=== PATIENT | female | born 1960 | race Caucasian/White ===

== ENCOUNTER 2017-10-07 07:31 | Emergency (ER) | payer BC ==
[~2017-10-07] VITALS: Ht 162.6 cm; Wt 88.5 kg
[2017-10-07] MEDS ORDERED: VENTOLIN HFA 1818 GM INH (07:49)
[2017-10-07] MEDS ORDERED: [UNRECOGNIZED DRUG - REMARK] (07:51)
[2017-10-07 08:03] LABS: URINE BILIRUBIN NEGATIVE (Negative); URINE BLOOD TRACE (Negative); URINE CLARITY CLEAR; URINE COLOR YELLOW; URINE GLUCOSE-RANDOM NEGATIVE (Negative); URINE KETONES NEGATIVE (Negative); URINE NITRITE-REFLEX NEGATIVE (Negative); URINE PROTEIN NEGATIVE (Negative); URINE SPECIFIC GRAVITY 1.025 (1.005-1.030); URINE UROBILINOGEN 0.2 E.U./dl (0.2-1.0)
[2017-10-07 08:04] LABS: URINE LEUKOCYTES-REFLEX 2+ (Negative)
[2017-10-07 08:12] LABS: CASTS None Seen /LPF (None Seen); CRYSTALS None Seen /LPF (None Seen); MUCUS None Seen strn/LPF (None Seen); SQUAMOUS 4-10 Moderate /LPF (0-3); URINE WBC-REFLEX >25 Many /HPF (0-5)
[2017-10-07 08:19] LABS: ABSOLUTE BASOPHILS 0.1 thou/uL (0.0-0.2); ABSOLUTE EOSINOPHILS 0.2 thou/uL (0.0-0.7); ABSOLUTE LYMPHOCYTES 2.4 thou/uL (0.8-5.3); ABSOLUTE MONOCYTES 0.6 thou/uL (0.0-1.2); ABSOLUTE NEUTROPHILS 4.8 thou/uL (1.6-8.1); BASOPHILS 0.8 %; EOSINOPHILS 2.4 %; HEMATOCRIT 34.9 % (37.0-47.0); LYMPHOCYTES 29.5 %; MCH 29.7 pg (26.0-34.0); MCHC 34.2 g/dL (28.0-37.0); MCV 86.7 fL (80.0-100.0); MONOCYTES 7.3 %; MPV 6.8 fl. (7.2-11.1); NUCLEATED RBCS 0 /100WBC; PLATELET COUNT* 215 thou/uL (150-400); RBC 4.03 mil/uL (4.20-5.00); RDW-CV 13.2 % (10.5-14.5)
[2017-10-07 08:29] LABS: ANION GAP 8 mmol/L (7-16); BUN 21 mg/dL (7-18); CALCIUM 8.6 mg/dL (8.5-10.1); CHLORIDE 109 mmol/L (98-107); CO2 26 mmol/L (21-32); CREATININE 0.8 mg/dL (0.6-1.3); GLUCOSE 102 mg/dL (70-99); POTASSIUM 3.1 mmol/L (3.5-5.1); SODIUM 143 mmol/L (136-145)
[2017-10-07 08:35] LABS: ALBUMIN 3.4 g/dL (3.4-5.0); ALKALINE PHOSPHATASE 79 U/L (46-116); LIPASE 89 U/L (73-393); SGOT 26 U/L (15-37); SGPT 40 U/L (30-65); TOTAL BILIRUBIN 0.5 mg/dL (<0.1-1.0); TOTAL PROTEIN 6.5 g/dL (6.4-8.2); TROPONIN-I LEVEL <0.06 ng/mL (<0.06)
[2017-10-07] MEDS ORDERED: KEFLEX500 M1 PO (10:42)
[2017-10-07 10:51] VITALS: BP 138/91
== END 2017-10-07 10:52 | disposition home or self-care (01) ==
LOC: M.ERS 07:31
PROVIDERS: Emergency Medicine
DX: N39.0 Urinary tract infection, site not specified (principal); I10 Essential (primary) hypertension; E11.9 Type 2 diabetes mellitus without complications; J45.909 Unspecified asthma, uncomplicated; Z88.1 Allergy status to other antibiotic agents; Z88.8 Allergy status to other drugs, medicaments and biological substances

== ENCOUNTER 2017-11-21 15:38 | Emergency (ER) | payer BC ==
[~2017-11-21] VITALS: Ht 165.1 cm; Wt 95.3 kg
[~2017-11-21 15:38] MED LIST: KEFLEX500 M1 PO; VENTOLIN HFA 1818 GM INH; [UNRECOGNIZED DRUG - REMARK]
[2017-11-21] MEDS ORDERED: DOXYCYCLINE 10100 MG PO (15:48)
[2017-11-21 16:26] LABS: ABSOLUTE EOSINOPHILS 0.2 thou/uL (0.0-0.7); ABSOLUTE LYMPHOCYTES 1.1 thou/uL (0.8-5.3); ABSOLUTE MONOCYTES 0.5 thou/uL (0.0-1.2); ABSOLUTE NEUTROPHILS 3.7 thou/uL (1.6-8.1); BASOPHILS 0.2 %; EOSINOPHILS 2.9 %; HEMATOCRIT 38.2 % (37.0-47.0); LYMPHOCYTES 20.3 %; MCH 29.7 pg (26.0-34.0); MCV 87.4 fL (80.0-100.0); MONOCYTES 9.6 %; MPV 6.5 fl. (7.2-11.1); NUCLEATED RBCS 0 /100WBC; PLATELET COUNT* 198 thou/uL (150-400); RBC 4.37 mil/uL (4.20-5.00); RDW-CV 13.2 % (10.5-14.5); WBC 5.5 thou/uL (4.0-11.0)
[2017-11-21 16:35] LABS: ANION GAP 7 mmol/L (7-16); BUN 13 mg/dL (7-18); CALCIUM 8.7 mg/dL (8.5-10.1); CHLORIDE 104 mmol/L (98-107); CO2 29 mmol/L (21-32); CREATININE 0.9 mg/dL (0.6-1.3); GLUCOSE 106 mg/dL (70-99); POTASSIUM 3.3 mmol/L (3.5-5.1); SODIUM 140 mmol/L (136-145)
[2017-11-21 16:44] LABS: ALBUMIN 3.8 g/dL (3.4-5.0); ALKALINE PHOSPHATASE 84 U/L (46-116); LIPASE 69 U/L (73-393); SGOT 32 U/L (15-37); SGPT 45 U/L (30-65); TOTAL BILIRUBIN 0.6 mg/dL (<0.1-1.0); TOTAL PROTEIN 7.7 g/dL (6.4-8.2); TROPONIN-I LEVEL <0.06 ng/mL (<0.06)
[2017-11-21] MEDS ORDERED: PROAIR HFA8.5 GM INH (17:01)
[2017-11-21] MEDS ORDERED: PREDNISONE 20 M20 MG PO (17:01)
[2017-11-21] MEDS ORDERED: PEPCID20 MG PO (17:04)
[2017-11-21 17:15] VITALS: BP 157/93
[2017-11-21] MEDS ORDERED: AEROECLIPSE II1 EACH MISCELL (17:18)
[2017-11-21] MEDS ORDERED: ALBUTEROL2.5 MG/31 INH (17:18)
--- NOTE | 2017-11-22 15:14 | EKG ---
[place] [address] ELECTROCARDIOGRAM REPORT Name: SKYLAR OLSEN Room: [facility] ([place], [place])#: [id number] Admission: 11/21/17 Attend Phys: Discharge: 11/21/17 Date of : 62 Report #: [id number] THIS REPORT FOR: //name// [facility] ED Test Date: 2017-11-21 Test Time: 15:47:35 Pat Name: SKYLAR OLSEN Department: Room: Gender: F Tree Topper: Marco Antonio CAREY : 1960 Requested By: Niurka Regan Order Number: [id number] Steve MD: Kg Licona Measurements Intervals [place] Rate: 107 P: 64 IN: 182 QRS: -9 QRSD: 88 T: 48 QT: 345 QTc: 461 Interpretive Statements Sinus tachycardia Probable left atrial enlargement Low voltage, precordial leads Probable anteroseptal infarct, old No previous ECG available for comparison Electronically Signed On 11-22-2017 15:14:29 CDT by Kg Licona [email or web address] <ELECTRONICALLY SIGNED> By: Kg Licona MD, [facility] 11/22/17 1514 1547 1547 Kg Licona MD, [facility] /EPI
== END 2017-11-21 17:30 | disposition home or self-care (01) ==
LOC: M.ERS 15:38
PROVIDERS: Physician Assistant
DX: J18.9 Pneumonia, unspecified organism (principal); I10 Essential (primary) hypertension; E11.9 Type 2 diabetes mellitus without complications; J45.909 Unspecified asthma, uncomplicated; Z88.1 Allergy status to other antibiotic agents; Z88.8 Allergy status to other drugs, medicaments and biological substances

== ENCOUNTER 2018-01-09 01:36 | Emergency (ER) | payer BC ==
[~2018-01-09] VITALS: Ht 165.1 cm; Wt 95.3 kg
[~2018-01-09 01:36] MED LIST changes: +AEROECLIPSE II1 EACH MISCELL; +ALBUTEROL2.5 MG/31 INH; +DOXYCYCLINE 10100 MG PO; +PEPCID20 MG PO; +PREDNISONE 20 M20 MG PO; +PROAIR HFA8.5 GM INH
[2018-01-09] MEDS ORDERED: ADVAIR HFA 230M12 GM (01:52)
[2018-01-09] MEDS ORDERED: SINGULAIR 10 MG10 M1 (01:52)
[2018-01-09] MEDS ORDERED: PEPCID20 MG (01:52)
[2018-01-09] MEDS ORDERED: MEDROLDOSEPACK PO (02:22)
[2018-01-09] MEDS ORDERED: CUTIVATE30 GM TOP (02:22)
[2018-01-09 02:44] VITALS: BP 148/88
== END 2018-01-09 02:46 | disposition home or self-care (01) ==
LOC: M.ERS 01:36
DX: L25.9 Unspecified contact dermatitis, unspecified cause (principal); I10 Essential (primary) hypertension; E11.9 Type 2 diabetes mellitus without complications; J45.909 Unspecified asthma, uncomplicated; Z88.8 Allergy status to other drugs, medicaments and biological substances; Z88.1 Allergy status to other antibiotic agents

== ENCOUNTER → 2018-02-02 | Outpatient (CLI) | payer BC ==
[~2018-02-02] MED LIST changes: +ADVAIR HFA 230M12 GM; +CUTIVATE30 GM TOP; +MEDROLDOSEPACK PO; +PEPCID20 MG; +SINGULAIR 10 MG10 M1
[2018-02-02 11:04] LABS: HEMATOCRIT 38.1 % (37.0-47.0); MCH 30.1 pg (26.0-34.0); MCV 88.3 fL (80.0-100.0); MPV 6.4 fl. (7.2-11.1); RBC 4.31 mil/uL (4.20-5.00); RDW-CV 13.2 % (10.5-14.5); WBC 6.1 thou/uL (4.0-11.0)
[2018-02-02 11:30] LABS: ALBUMIN 3.3 g/dL (3.4-5.0); CREATININE 0.9 mg/dL (0.6-1.3); POTASSIUM 3.4 mmol/L (3.5-5.1); TOTAL BILIRUBIN 0.6 mg/dL (<0.1-1.0); TOTAL PROTEIN 6.8 g/dL (6.4-8.2)
[2018-02-03 02:07] LABS: GLYCOHEMOGLOBIN (HGB A1C) 6.1 % (4.8-5.6)
--- NOTE | 2018-02-09 16:07 | PATH ---
[address] [address] PATHOLOGY RPT PROCEDURE Name: SKYLAR OLSEN Room: [facility] Angela#: [id number] Admission: 02/02/18 Date of : 62 Discharge: Report #: [id number] Path Case #: [id number] [facility] Accession Number: [id number] . 01 Material submitted: . LEFT LEG WOUND . 01 Clinical history: . None provided . 02 Diagnosis: Left leg wound/biopsy: - Benign skin with nonspecific ulceration, special stains negative for fungal elements. [facility]/02/07/2018 . 02 Comment: Special stain: PAS fungus. . ([place]:carito; 02/06/18) . 02 Electronically signed: . Jenaro Aldrich MD, Pathologist NPI- [id number] . 01 Gross description: . The specimen is received in formalin, labeled "Skylar Ewbank, left leg biopsy". Received is an irregular shave biopsy of pale flynn, glistening skin measuring 0.8 x 0.5 x 0.1 cm in greatest dimensions. The surgical margin is inked. The specimen is bisected and entirely submitted in cassette A1. (CAA; 02/03/2018) QAC/QAC . 02 Pathologist provided ICD-10: L98.499 . 02 CPT . 328267, 964330 Performed at: 01 [facility] [address], [place] [address] MD Jonathon Elias MD Phone: [phone] Performed at: [address] [address] [address], [place], [place] [id number] MD Jenaro Aldrich MD Phone: [phone]
== END ==
LOC: M.WC 09:00 → M.LAB 09:01
PROVIDERS: Family Medicine
DX: L03.115 Cellulitis of right lower limb (principal); L03.116 Cellulitis of left lower limb; I10 Essential (primary) hypertension; K21.9 Gastro-esophageal reflux disease without esophagitis; J45.20 Mild intermittent asthma, uncomplicated; L84 Corns and callosities; F32.9 Major depressive disorder, single episode, unspecified; F41.9 Anxiety disorder, unspecified; R21 Rash and other nonspecific skin eruption; G47.30 Sleep apnea, unspecified; E11.36 Type 2 diabetes mellitus with diabetic cataract; J42 Unspecified chronic bronchitis

== ENCOUNTER → 2018-02-09 | Outpatient (CLI) | payer BC | LOC: M.WC 04:50 | DX: L03.115 Cellulitis of right lower limb (principal); L03.116 Cellulitis of left lower limb; E11.36 Type 2 diabetes mellitus with diabetic cataract; I10 Essential (primary) hypertension; K21.9 Gastro-esophageal reflux disease without esophagitis; R21 Rash and other nonspecific skin eruption; G47.30 Sleep apnea, unspecified; J45.20 Mild intermittent asthma, uncomplicated; J42 Unspecified chronic bronchitis ==

== ENCOUNTER → 2018-02-23 | Outpatient (CLI) | payer BC | LOC: M.WC 04:47 | DX: S81.802D Unspecified open wound, left lower leg, subsequent encounter (principal); S81.801D Unspecified open wound, right lower leg, subsequent encounter; R21 Rash and other nonspecific skin eruption; E11.36 Type 2 diabetes mellitus with diabetic cataract; I10 Essential (primary) hypertension; L84 Corns and callosities; G47.30 Sleep apnea, unspecified; K21.9 Gastro-esophageal reflux disease without esophagitis; J45.909 Unspecified asthma, uncomplicated; J42 Unspecified chronic bronchitis; F41.9 Anxiety disorder, unspecified; F32.9 Major depressive disorder, single episode, unspecified; X58.XXXD Exposure to other specified factors, subsequent encounter ==

== ENCOUNTER 2018-08-09 16:18 | Emergency (ER) | payer OTHER ==
[~2018-08-09] VITALS: Ht 165.1 cm; Wt 97.1 kg
[2018-08-09] MEDS ORDERED: SYMBICORT80 MCG/4.1 INH (16:27)
[2018-08-09] MEDS ORDERED: MEDROLDOSEPACK PO (16:47)
[2018-08-09 17:35] VITALS: BP 139/87
== END 2018-08-09 17:38 | disposition home or self-care (01) ==
LOC: M.ERS 16:18
DX: R22.1 Localized swelling, mass and lump, neck (principal); T78.40XA Allergy, unspecified, initial encounter; I10 Essential (primary) hypertension; E11.9 Type 2 diabetes mellitus without complications; J45.909 Unspecified asthma, uncomplicated; K58.9 Irritable bowel syndrome, unspecified; Z88.1 Allergy status to other antibiotic agents; Z88.8 Allergy status to other drugs, medicaments and biological substances; X58.XXXA Exposure to other specified factors, initial encounter

== ENCOUNTER 2018-08-16 22:27 | Emergency (ER) | payer OTHER ==
[~2018-08-16] VITALS: Ht 165.1 cm; Wt 98.1 kg
[~2018-08-16 22:27] MED LIST changes: +SYMBICORT80 MCG/4.1 INH
[2018-08-16] MEDS ORDERED: MEDROLDOSEPACK PO (23:38)
[2018-08-16] MEDS ORDERED: VISTARIL 25 MG25 M1 PO (23:39)
[2018-08-16 23:50] VITALS: BP 156/81
== END 2018-08-16 23:50 | disposition home or self-care (01) ==
LOC: M.ERS 22:27
DX: R06.02 Shortness of breath (principal); T78.49XA Other allergy, initial encounter; I10 Essential (primary) hypertension; E11.9 Type 2 diabetes mellitus without complications; J45.909 Unspecified asthma, uncomplicated; K58.9 Irritable bowel syndrome, unspecified; Z88.1 Allergy status to other antibiotic agents; Z88.8 Allergy status to other drugs, medicaments and biological substances; X58.XXXA Exposure to other specified factors, initial encounter

== ENCOUNTER 2018-11-10 09:23 | Emergency (ER) | payer OTHER ==
[~2018-11-10] VITALS: Ht 162.6 cm; Wt 97.1 kg
[~2018-11-10 09:23] MED LIST changes: +VISTARIL 25 MG25 M1 PO
[2018-11-10 10:05] LABS: HEMOGLOBIN 13.6 gm/dL (12.0-15.0); MCH 29.9 pg (26.0-34.0); MCHC 33.9 g/dL (28.0-37.0); MCV 88.1 fL (80.0-100.0); RBC 4.54 mil/uL (4.20-5.00); RDW-CV 13.3 % (10.5-14.5); WBC 7.2 thou/uL (4.0-11.0)
[2018-11-10 10:14] LABS: CALCIUM 9.1 mg/dL (8.5-10.1); CREATININE 0.9 mg/dL (0.6-1.3); POTASSIUM 3.5 mmol/L (3.5-5.1)
[2018-11-10 10:36] LABS: URINE BILIRUBIN NEGATIVE (Negative); URINE BLOOD NEGATIVE (Negative); URINE CLARITY CLEAR; URINE COLOR YELLOW; URINE GLUCOSE-RANDOM 3+ (Negative); URINE KETONES TRACE (Negative); URINE LEUKOCYTES-REFLEX NEGATIVE (Negative); URINE NITRITE-REFLEX NEGATIVE (Negative); URINE PROTEIN NEGATIVE (Negative); URINE SPECIFIC GRAVITY >= 1.030 (1.005-1.030); URINE UROBILINOGEN 0.2 E.U./dl (0.2-1.0)
[2018-11-10] MEDS ORDERED: METFORMIN HCL500 MG PO (11:06)
[2018-11-10 11:27] VITALS: BP 152/83
== END 2018-11-10 11:27 | disposition home or self-care (01) ==
LOC: M.ERS 09:23
PROVIDERS: Emergency Medicine Emergency Medical Services
DX: E11.9 Type 2 diabetes mellitus without complications (principal); I10 Essential (primary) hypertension; J45.909 Unspecified asthma, uncomplicated; K58.9 Irritable bowel syndrome, unspecified; Z88.1 Allergy status to other antibiotic agents; Z90.13 Acquired absence of bilateral breasts and nipples; Z88.8 Allergy status to other drugs, medicaments and biological substances

== ENCOUNTER 2019-10-18 22:27 | Emergency (ER) | payer OTHER ==
[~2019-10-18] VITALS: Ht 162.6 cm; Wt 88.5 kg
[~2019-10-18 22:27] MED LIST changes: +METFORMIN HCL500 MG PO
[2019-10-18] MEDS ORDERED: OMEPRAZOLE40 MG PO (22:42)
[2019-10-18] MEDS ORDERED: LIPITOR 20 MG T20 M1 PO (22:42)
[2019-10-18] MEDS ORDERED: COZAAR 25 MG TA25 M1 PO (22:42)
[2019-10-18] MEDS ORDERED: ASA81BEC PO (22:42)
[2019-10-18 23:05] LABS: INFLUENZA A ANTIGEN Negative (Negative); INFLUENZA B ANTIGEN Negative (Negative)
[2019-10-18 23:13] LABS: ABSOLUTE EOSINOPHILS 0.2 thou/uL (0.0-0.7); ABSOLUTE LYMPHOCYTES 3.4 thou/uL (0.8-5.3); ABSOLUTE MONOCYTES 0.7 thou/uL (0.0-1.2); ABSOLUTE NEUTROPHILS 5.7 thou/uL (1.6-8.1); BASOPHILS 0.3 %; EOSINOPHILS 1.8 %; HEMATOCRIT 38.1 % (37.0-47.0); HEMOGLOBIN 13.1 gm/dL (12.0-15.0); LYMPHOCYTES 33.7 %; MCH 31.2 pg (26.0-34.0); MCHC 34.4 g/dL (28.0-37.0); MCV 90.5 fL (80.0-100.0); MONOCYTES 6.9 %; MPV 6.8 fl. (7.2-11.1); NUCLEATED RBCS 0 /100WBC; PLATELET COUNT* 255 thou/uL (150-400); POLYS 57.3 %; RBC 4.22 mil/uL (4.20-5.00); RDW-CV 12.9 % (10.5-14.5)
[2019-10-18 23:18] LABS: CALCIUM 8.5 mg/dL (8.5-10.1); POTASSIUM 3.3 mmol/L (3.5-5.1)
[2019-10-18 23:23] LABS: ALBUMIN 3.7 g/dL (3.4-5.0); TOTAL BILIRUBIN 0.6 mg/dL (<0.1-1.0); TOTAL PROTEIN 7.2 g/dL (6.4-8.2)
[2019-10-19] MEDS ORDERED: ZPAK PO (02:07)
[2019-10-19 02:20] VITALS: BP 139/87
--- NOTE | 2019-10-19 10:56 | EKG ---
[place] [address] ELECTROCARDIOGRAM REPORT Name: SKYLAR OLSEN [facility] [id number] Admission: 10/18/19 Attend Phys: Discharge: 10/19/19 Date of : 62 Date of Service: 10/18/192251 Report #: [id number] THIS REPORT FOR: //name// [facility] ED Test Date: 2019-10-18 Test Time: 22:52:26 Pat Name: SKYLAR OLSEN Department: Room: Gender: Imaging Technician: : 1960 Requested By: Tigist Antony Order Number: [id number] MD: Kg Licona Measurements Intervals [place] Rate: 74 P: 11 DC: 162 QRS: -9 QRSD: 95 T: -19 QT: 414 QTc: 460 Interpretive Statements Sinus rhythm old anterior infarction Inferior infarct, age indeterminate Compared to ECG 11/21/2017 15:47:35 Sinus tachycardia no longer present Myocardial infarct finding still present Electronically Signed On 10-19-2019 10:54:23 CDT by Kg Licona [email or web address] <ELECTRONICALLY SIGNED> By: Kg Licona MD, FACC 10/19/19 1054 2252 2252 Kg Licona MD, [facility] /EPI
== END 2019-10-19 02:20 | disposition home or self-care (01) ==
LOC: M.ERS 22:27
PROVIDERS: Emergency Medicine
DX: J18.9 Pneumonia, unspecified organism (principal); I10 Essential (primary) hypertension; E11.9 Type 2 diabetes mellitus without complications; K58.9 Irritable bowel syndrome, unspecified; J45.909 Unspecified asthma, uncomplicated; Z88.1 Allergy status to other antibiotic agents; Z88.8 Allergy status to other drugs, medicaments and biological substances

== ENCOUNTER 2020-02-28 09:55 | Inpatient (IN) | payer BC ==
[~2020-02-28] VITALS: Ht 162.6 cm; Wt 92.2 kg
--- NOTE | ~2020-02-28 | CON ---
[address] [address] CONSULTATION Name: SKYLAR OLSEN Room: [address] IN .R.#: [id number] Admission: 02/28/20 Attend Phys: Savage Pizano MD Discharge: Date of : 62 Report #: [id number] THIS REPORT FOR: //name// cc: Marianna Steinberg MD, Michelle MD ~ THIS REPORT FOR: //name// CC: Savage Stauffer DATE OF SERVICE: 02/29/2020 REQUESTING PHYSICIAN: Savage Pizano MD INDICATION FOR CONSULTATION: COVID-19. HISTORY OF PRESENT ILLNESS: A 59-year-old female who is a lifetime nonsmoker. She does have a history of bronchial asthma as well as diabetes. The patient has a clinical history consistent with obstructive sleep apnea. She has previously considered a sleep study; however, has not had one performed. The patient was now diagnosed with COVID-19 around 11-12 days ago. She has been treated with 2 Medrol Dosepaks as an outpatient. She has been checking her O2 saturation at home and has seen a drop to up to 80% on room air. The patient also has had a high-grade fever with chills up to 39.1 degrees Celsius. She has had worsening shortness of breath despite taking steroids as an outpatient. She also had a cough, occasional scanty yellow or white sputum, mostly dry. No chest pain, is not having a nasal discharge, minor sore throat, no swelling of lower extremities, no calf pain. Has had disturbed sleep, daytime sleepiness, sleep complaints are at baseline. Did have some joint pains. The patient answered to the negative for 12 questions for review of systems except as mentioned above. The patient continues to have ongoing shortness of breath and coughing. She was having difficulty speaking in full sentences at the time of my evaluation and had repeated coughing. REVIEW OF SYSTEMS: The patient's review of systems for 12 points is negative except as above. PAST MEDICAL HISTORY: Bronchial asthma; diabetes; clinical history consistent with obstructive sleep apnea, not previously diagnosed; bilateral breast reduction and liposuction; right thumb tendon repair; gallbladder surgery; hypertension; irritable bowel syndrome; facial biopsy. SOCIAL HISTORY: Lifetime nonsmoker. No known history of heavy alcohol use or illegal drug use. CURRENT MEDICATIONS: List [place] [address] CONSULTATION Name: SKYLAR OLSEN Room: [address]#: [id number] Admission: 02/28/20 Attend Phys: Savage Pizano MD Discharge: Date of : 62 Report #: [id number] HOME MEDICATIONS: List in [place] reviewed, also as discussed above. ALLERGIES: THE PATIENT SAYS SHE HAS HAD A RASH WITH AUGMENTIN; HOWEVER, SHE TOLERATES CEPHALOSPORINS WITHOUT PROBLEMS. GLUTEN IS ALSO LISTED AN ALLERGY. SHE HAS HAD KODY INHIBITOR RELATED COUGH WITH LISINOPRIL. PHYSICAL EXAMINATION: GENERAL: The patient is alert, awake and oriented, appears to be short of breath at rest, was repeatedly coughing at the time of my examination. VITAL SIGNS: Pulse of 89, blood pressure 127/74. She is saturating in the mid 90s on 3 liters oxygen via nasal cannula. I asked the patient's RN to check an O2 saturation on room air. The patient had an O2 saturation reported as low as 89% on room air at rest and on minor ambulation to commode dropping to 85%. Therefore, the patient remains on supplemental oxygen. Her respiratory rate is 19. She had a high-grade fever up to 39.1 on initial presentation, she is 37.0 now. HEENT: Head is normocephalic and atraumatic. She has a narrow airway. NECK: Does not show raised JVP, asymmetry, mass, or lymph nodes. CHEST: Symmetrical expansion on inspection and palpation. On auscultation, breath sounds are bilaterally equal, decreased with expirations prolonged. I do not hear any added sounds. HEART: Regular. There is no murmur. ABDOMEN: Soft and nontender. EXTREMITIES: Lower extremities show no edema, no calf tenderness. SKIN: Dry and intact. NEUROLOGICAL: Moves all extremities bilaterally equally and spontaneously with no focal deficit identified. LABORATORY DATA: The patient's chest x-ray is reviewed. There are bilateral interstitial infiltrates consistent with COVID-19. There are also focal opacities at the left lung base, which raise the possibility of secondary bacterial pneumonia. The patient's COVID-19 antigen is positive. CBC and chemistries from yesterday in [facility] reviewed. I have ordered repeat labs which are pending. Arterial blood gas in [facility] reviewed. ASSESSMENT/PLAN: 1. COVID-19. The patient has been progressively declining despite using corticosteroids as an outpatient and there is documentation of hypoxemia on room air and the patient is requiring supplemental oxygen. Therefore, she does qualify for remdesivir therapy and I have ordered the same. The patient also does need corticosteroids, which are already ordered and is as discussed below. 2. Pulmonary infiltrates. In addition to bilateral interstitial infiltrates consistent with COVID-19, I do see some focal opacities at the left lung base as well. This raises the possibility of secondary bacterial pneumonia as well. The patient is on azithromycin and has had a positive blood culture and [address] [place] [place] [address] CONSULTATION Name: SKYLAR OLSEN Room: [address] IN M.R.#: [id number] Admission: 02/28/20 Attend Phys: Savage Pizano MD Discharge: Date of : 62 Report #: [id number] therefore is also on vancomycin. I agree with the same and we will continue. A nasal swab for methicillin-resistant Staphylococcus aureus is pending. The patient's positive blood culture could be Staphylococcus, streptococcus or contaminant. In case it is streptococcus, in fact will respond better to cephalosporin. The patient reports that she is able to take cephalosporins without problems and therefore I added ceftriaxone. 3. Bronchial asthma exacerbation. I feel that she does have active bronchospasm as well. Currently, she is on an albuterol inhaler as well as Solu-Medrol. We will continue the same. In case the patient's condition declines, may need to consider transferring her to a negative pressure room for administration of nebulized bronchodilators. 4. Daytime sleepiness/sleep disturbances. The patient's history is consistent with obstructive sleep apnea. I feel that we can watch for now, but again if the patient's condition deteriorates, I recommend having a low threshold of transferring her over to a negative pressure room as the likelihood is that the patient will have a favorable response to BiPAP therapy. 5. Evaluation for thromboembolic phenomena. We will check a D-dimer, but COVID-19 by itself also increases a D-dimer. The patient is currently on prophylactic dose Lovenox. At this time, I do not feel strongly either way about keeping the current dose or increasing it to high dose. I did not change the current dose, which is at a prophylactic dose. Should the patient's condition deteriorate, we will consider increasing the dose of Lovenox and/or consider evaluation for thromboembolic phenomena. 6. History of diabetes. 7. Obesity. Thanks for this consultation. By: 1552 1615Amoustapha Newman MD /nt
[2020-02-28 09:55] VITALS: BP 139/26
[~2020-02-28 09:55] MED LIST changes: +ASA81BEC PO; +COZAAR 25 MG TA25 M1 PO; +LIPITOR 20 MG T20 M1 PO; +OMEPRAZOLE40 MG PO; +ZPAK PO
[2020-02-28 10:34] LABS: ABSOLUTE BASOPHILS 0.1 thou/uL (0.0-0.2); ABSOLUTE LYMPHOCYTES 1.1 thou/uL (0.8-5.3); ABSOLUTE MONOCYTES 0.3 thou/uL (0.0-1.2); ABSOLUTE NEUTROPHILS 6.9 thou/uL (1.6-8.1); BASOPHILS 0.6 %; EOSINOPHILS 0.2 %; HEMATOCRIT 39.2 % (37.0-47.0); HEMOGLOBIN 13.8 gm/dL (12.0-15.0); LYMPHOCYTES 12.7 %; MCH 30.7 pg (26.0-34.0); MCHC 35.2 g/dL (28.0-37.0); MCV 87.2 fL (80.0-100.0); MONOCYTES 4.1 %; NUCLEATED RBCS 0 /100WBC; PLATELET COUNT* 139 thou/uL (150-400); POLYS 82.4 %; RDW-CV 12.9 % (10.5-14.5); WBC 8.4 thou/uL (4.0-11.0)
[2020-02-28 10:46] LABS: CALCIUM 8.2 mg/dL (8.5-10.1); CREATININE 1.1 mg/dL (0.6-1.3); POTASSIUM 3.6 mmol/L (3.5-5.1)
[2020-02-28 10:50] LABS: ALBUMIN 2.9 g/dL (3.4-5.0); MAGNESIUM 1.8 mg/dL (1.8-2.4); TOTAL BILIRUBIN 0.5 mg/dL (<0.1-1.0)
[2020-02-28 11:38] LABS: BE -2.6 mmol/L (-2 to +3); PCO2 35.5 mmHg (35.0-45.0); PO2 78.2 mmHg (75.0-100.0); pH 7.401 (7.340-7.450)
[2020-02-28 13:30] LABS: URINE BILIRUBIN NEGATIVE (Negative); URINE BLOOD NEGATIVE (Negative); URINE CLARITY CLEAR; URINE COLOR YELLOW; URINE GLUCOSE-RANDOM NEGATIVE (Negative); URINE KETONES NEGATIVE (Negative); URINE LEUKOCYTES-REFLEX NEGATIVE (Negative); URINE NITRITE-REFLEX NEGATIVE (Negative); URINE PROTEIN TRACE (Negative); URINE SPECIFIC GRAVITY >= 1.030 (1.005-1.030); URINE UROBILINOGEN 0.2 E.U./dl (0.2-1.0)
[2020-02-28 14:37] VITALS: BP 136/76
[2020-02-28] MEDS ORDERED: VALSARTAN80 MG PO (19:57)
[2020-02-28 20:15] VITALS: BP 103/63
[2020-02-29 00:56] VITALS: BP 143/84
[2020-02-29 04:43] VITALS: BP 126/74
[2020-02-29 08:00] VITALS: BP 136/71
[2020-02-29 12:01] VITALS: BP 127/74
[2020-02-29 15:52] VITALS: BP 150/83
[2020-02-29 17:43] LABS: HEMATOCRIT 34.1 % (37.0-47.0); HEMOGLOBIN 11.9 gm/dL (12.0-15.0); MCH 30.6 pg (26.0-34.0); MCV 87.4 fL (80.0-100.0); MPV 6.6 fl. (7.2-11.1); NUCLEATED RBCS 0 /100WBC; PLATELET COUNT* 139 thou/uL (150-400); RDW-CV 12.8 % (10.5-14.5); WBC 12.3 thou/uL (4.0-11.0)
[2020-02-29 17:54] LABS: CALCIUM 8.1 mg/dL (8.5-10.1); CREATININE 1.2 mg/dL (0.6-1.3); MAGNESIUM 1.8 mg/dL (1.8-2.4); POTASSIUM 3.4 mmol/L (3.5-5.1)
[2020-02-29 17:58] LABS: ABSOLUTE LYMPHOCYTES 0.6 thou/uL (0.8-5.3); ABSOLUTE MONOCYTES 0.1 thou/uL (0.0-1.2); ABSOLUTE NEUTROPHILS 11.6 thou/uL (1.6-8.1); APTT 24.3 Seconds (25.0-31.3); ATYPICAL LYMPHS 2 %; INR 0.9; PROTIME 9.6 Seconds (9.20-11.50)
[2020-02-29 17:59] LABS: PLATELET ESTIMATE ADEQUATE
[2020-02-29 20:00] VITALS: BP 126/76
[2020-03-01] VITALS: BP 135/72
[2020-03-01 04:00] VITALS: BP 165/68
[2020-03-01 08:00] VITALS: BP 173/89
[2020-03-01 09:48] LABS: ABSOLUTE LYMPHOCYTES 0.7 thou/uL (0.8-5.3); ABSOLUTE MONOCYTES 0.3 thou/uL (0.0-1.2); ABSOLUTE NEUTROPHILS 10.9 thou/uL (1.6-8.1); BASOPHILS 0.2 %; HEMATOCRIT 37.1 % (37.0-47.0); HEMOGLOBIN 12.7 gm/dL (12.0-15.0); LYMPHOCYTES 5.8 %; MCHC 34.3 g/dL (28.0-37.0); MCV 87.3 fL (80.0-100.0); MONOCYTES 2.8 %; MPV 6.9 fl. (7.2-11.1); NUCLEATED RBCS 0 /100WBC; PLATELET COUNT* 152 thou/uL (150-400); POLYS 91.2 %; RBC 4.25 mil/uL (4.20-5.00); RDW-CV 12.8 % (10.5-14.5)
[2020-03-01 09:57] LABS: ALBUMIN 2.6 g/dL (3.4-5.0); CALCIUM 8.2 mg/dL (8.5-10.1); CREATININE 1.1 mg/dL (0.6-1.3); MAGNESIUM 1.8 mg/dL (1.8-2.4); POTASSIUM 3.7 mmol/L (3.5-5.1); TOTAL BILIRUBIN 0.5 mg/dL (<0.1-1.0); TOTAL PROTEIN 6.6 g/dL (6.4-8.2)
[2020-03-01 12:37] VITALS: BP 165/90
[2020-03-01 15:49] VITALS: BP 152/79
[2020-03-01 22:35] VITALS: BP 152/77
[2020-03-02 04:00] VITALS: BP 157/90
[2020-03-02 04:44] LABS: HEMATOCRIT 34.3 % (37.0-47.0); HEMOGLOBIN 12.3 gm/dL (12.0-15.0); MCH 30.8 pg (26.0-34.0); MCHC 35.7 g/dL (28.0-37.0); MCV 86.3 fL (80.0-100.0); MPV 6.8 fl. (7.2-11.1); RBC 3.98 mil/uL (4.20-5.00); RDW-CV 12.8 % (10.5-14.5); WBC 9.9 thou/uL (4.0-11.0)
[2020-03-02 05:39] LABS: ALBUMIN 2.5 g/dL (3.4-5.0); CALCIUM 7.7 mg/dL (8.5-10.1); MAGNESIUM 1.8 mg/dL (1.8-2.4); POTASSIUM 3.2 mmol/L (3.5-5.1); TOTAL BILIRUBIN 0.5 mg/dL (<0.1-1.0); TOTAL PROTEIN 6.1 g/dL (6.4-8.2)
[2020-03-02 08:00] VITALS: BP 144/75
[2020-03-02 13:00] VITALS: BP 164/92
[2020-03-02 16:00] VITALS: BP 129/78
[2020-03-02 20:00] VITALS: BP 143/84
[2020-03-02 20:20] VITALS: BP 148/83
[2020-03-03] VITALS (7 sets, daily range): BP systolic 126–200; BP diastolic 76–110
[2020-03-03 07:43] LABS: ABSOLUTE LYMPHOCYTES 0.6 thou/uL (0.8-5.3); ABSOLUTE MONOCYTES 0.4 thou/uL (0.0-1.2); ABSOLUTE NEUTROPHILS 9.5 thou/uL (1.6-8.1); BASOPHILS 0.1 %; HEMATOCRIT 36.1 % (37.0-47.0); MCH 30.8 pg (26.0-34.0); MCHC 35.9 g/dL (28.0-37.0); MCV 85.8 fL (80.0-100.0); MONOCYTES 3.8 %; MPV 6.5 fl. (7.2-11.1); NUCLEATED RBCS 0 /100WBC; PLATELET COUNT* 191 thou/uL (150-400); POLYS 90.1 %; RBC 4.21 mil/uL (4.20-5.00); RDW-CV 12.9 % (10.5-14.5); WBC 10.5 thou/uL (4.0-11.0)
[2020-03-03 07:49] LABS: PROTIME 10.2 Seconds (9.20-11.50)
[2020-03-03 07:54] LABS: PREALBUMIN 17.8 mg/dL (18.0-35.7)
[2020-03-03 08:01] LABS: ALBUMIN 2.8 g/dL (3.4-5.0); ALKALINE PHOSPHATASE 57 U/L (46-116); ANION GAP 8 mmol/L (7-16); BUN 22 mg/dL (7-18); CALCIUM 7.9 mg/dL (8.5-10.1); CHLORIDE 102 mmol/L (98-107); CO2 26 mmol/L (21-32); CREATININE 1.1 mg/dL (0.6-1.3); GLUCOSE 224 mg/dL (70-99); POTASSIUM 3.6 mmol/L (3.5-5.1); SGOT 24 U/L (15-37); SGPT 37 U/L (30-65); SODIUM 136 mmol/L (136-145); TOTAL BILIRUBIN 0.7 mg/dL (<0.1-1.0); TOTAL PROTEIN 6.4 g/dL (6.4-8.2); TROPONIN-I LEVEL <0.06 ng/mL (<0.06)
[2020-03-03 08:44] LABS: NT-PRO BRAIN NAT PEPTIDE 599 pg/mL (<300)
[2020-03-04] VITALS: BP 132/86
[2020-03-04 04:36] LABS: ABSOLUTE LYMPHOCYTES 0.7 thou/uL (0.8-5.3); ABSOLUTE MONOCYTES 0.5 thou/uL (0.0-1.2); ABSOLUTE NEUTROPHILS 10.6 thou/uL (1.6-8.1); BASOPHILS 0.3 %; HEMATOCRIT 35.5 % (37.0-47.0); HEMOGLOBIN 12.8 gm/dL (12.0-15.0); LYMPHOCYTES 5.8 %; MCH 30.6 pg (26.0-34.0); MCHC 35.9 g/dL (28.0-37.0); MCV 85.2 fL (80.0-100.0); MONOCYTES 4.5 %; MPV 6.6 fl. (7.2-11.1); NUCLEATED RBCS 0 /100WBC; PLATELET COUNT* 207 thou/uL (150-400); POLYS 89.4 %; RBC 4.17 mil/uL (4.20-5.00); RDW-CV 12.6 % (10.5-14.5); WBC 11.9 thou/uL (4.0-11.0)
[2020-03-04 04:58] LABS: ALBUMIN 2.7 g/dL (3.4-5.0); CALCIUM 7.8 mg/dL (8.5-10.1); CREATININE 1.1 mg/dL (0.6-1.3); POTASSIUM 3.5 mmol/L (3.5-5.1); TOTAL BILIRUBIN 0.7 mg/dL (<0.1-1.0); TOTAL PROTEIN 6.1 g/dL (6.4-8.2)
[2020-03-04 09:00] VITALS: BP 163/109
[2020-03-04 12:28] VITALS: BP 160/96
[2020-03-04 17:28] VITALS: BP 160/120
[2020-03-05] VITALS: BP 113/59
[2020-03-05 04:00] VITALS: BP 143/94
[2020-03-05 05:21] LABS: HEMATOCRIT 38.7 % (37.0-47.0); HEMOGLOBIN 13.5 gm/dL (12.0-15.0); MCH 30.1 pg (26.0-34.0); MCHC 34.9 g/dL (28.0-37.0); MCV 86.2 fL (80.0-100.0); MPV 6.6 fl. (7.2-11.1); RBC 4.49 mil/uL (4.20-5.00); RDW-CV 12.6 % (10.5-14.5); WBC 12.6 thou/uL (4.0-11.0)
[2020-03-05 05:43] LABS: CALCIUM 8.2 mg/dL (8.5-10.1); CREATININE 1.1 mg/dL (0.6-1.3); POTASSIUM 3.3 mmol/L (3.5-5.1)
[2020-03-05 08:00] VITALS: BP 150/95
[2020-03-05 17:35] VITALS: BP 146/96
[2020-03-05 20:00] VITALS: BP 112/49
[2020-03-06 00:29] VITALS: BP 109/57
[2020-03-06 04:41] VITALS: BP 119/73
[2020-03-06 06:30] VITALS: BP 120/68
[2020-03-06 08:00] VITALS: BP 132/90
[2020-03-06] MEDS ORDERED: CYCLOBENZAPRINE10 MG PO (10:43)
[2020-03-06] MEDS ORDERED: BENZONATATE100 MG PO (10:43)
[2020-03-06] MEDS ORDERED: ROBITUSSIN AC Liquid PO (10:43)
[2020-03-06] MEDS ORDERED: DEXAMETHASONE 44 M1 PO (10:43)
[2020-03-06] MEDS ORDERED: CEFDINIR300 MG PO (10:43)
[2020-03-06] MEDS ORDERED: COMBIVENT INH (10:47)
[2020-03-06] MEDS ORDERED: DIFLUCAN10 MG/ML PO (11:34)
--- NOTE | 2020-03-06 13:07 | EKG ---
[place] [address] ELECTROCARDIOGRAM REPORT Name: SKYLAR OLSEN Room: [address] IN M.R.#: [id number] Admission: 02/28/20 Attend Phys: Savage Pizano, Discharge: Date of : 62 Date of Service: 03/06/20 0624 Report #: [id number] THIS REPORT FOR: //name// [facility] Test Date: 2020-03-06 Test Time: 06:24:26 Pat Name: SKYLAR OLSEN Department: Room: [address] Gender: F Nocturnist Physician: [id number] : 1960 Requested By: Savage Pizano Order Number: [id number] Reading MD: Jona Harper Measurements Intervals [place] Rate: 107 P: 36 NV: 135 QRS: -19 QRSD: 83 T: 34 QT: 340 QTc: 454 Interpretive Statements Sinus tachycardia Inferior infarct, old Delayed R wave progression Compared to ECG 10/18/2019 22:52:26 Sinus rhythm no longer present Myocardial infarct finding still present Electronically Signed On 03-06-2020 13:07:29 CDT by Jona Harper [email or web address] <ELECTRONICALLY SIGNED> By: Jona Harper MD, FACC 03/06/20 1307 3 3 Jona Harper MD, FAC /EPI
[2020-03-06 13:26] VITALS: BP 132/90
== END 2020-03-06 15:30 | disposition home or self-care (01) | DRG 177 ==
LOC: M.ERS 09:55 → M.2W 12:27 → M.TBA-ER 12:27 → M.2W 14:37
PROVIDERS: Internal Medicine; Internal Medicine Critical Care Medicine; Personal Emergency Response Attendant; ADMIT Internal Medicine; ATTEND Internal Medicine
PROC: XW033E5 Introduction of Remdesivir Anti-infective into Peripheral Vein, Percutaneous Approach, New Technology Group 5 (ICD-10-PCS; principal; 2020-02-29)
DX: U07.1 COVID-19 (principal); J96.01 Acute respiratory failure with hypoxia; J12.89 Other viral pneumonia; J45.901 Unspecified asthma with (acute) exacerbation; I74.9 Embolism and thrombosis of unspecified artery; I10 Essential (primary) hypertension; E11.9 Type 2 diabetes mellitus without complications; J45.909 Unspecified asthma, uncomplicated; E66.9 Obesity, unspecified; G47.33 Obstructive sleep apnea (adult) (pediatric); Z79.82 Long term (current) use of aspirin; Z88.1 Allergy status to other antibiotic agents; Z88.8 Allergy status to other drugs, medicaments and biological substances; Z68.34 Body mass index [BMI] 34.0-34.9, adult; Z79.899 Other long term (current) drug therapy

== ENCOUNTER 2020-03-10 04:09 | Inpatient (IN) | payer BC ==
[~2020-03-10] VITALS: Ht 162.6 cm; Wt 94.3 kg
--- NOTE | ~2020-03-10 | CON ---
[address] [address] CONSULTATION Name: SKYLAR OLSEN Room: [address] [place] M.R.#: [id number] Admission: 03/10/20 Attend Phys: Vinayak Guardado Discharge: Date of : 62 Report #: [id number] THIS REPORT FOR: //name// cc: Marianna Steinberg MD, Michelle MD ~ THIS REPORT FOR: //name// CC: Marianna Bettencourt DATE OF SERVICE: 03/10/2020 Consult has been requested by Dr. Kelly. INDICATION FOR CONSULTATION: Pulmonary infiltrates. The patient has recently had COVID-19. HISTORY OF PRESENT ILLNESS: A 59-year-old female. She was only recently admitted to this hospital and had seen in conjunction with the hospitalist service. The patient was COVID-19 positive. She does have a previous history of bronchial asthma as well as diabetes and has also had a clinical history consistent with obstructive sleep apnea; however, she has not been previously diagnosed. The patient did have a high-grade fever up to 39.1 degrees Celsius. The patient also did require supplemental oxygen via nasal cannula and therefore, we did treat her with dexamethasone as well as remdesivir. The patient was subsequently discharged in a stable condition. The patient now reports that she has not done well since discharge. There has been some increase in shortness of breath. The patient also reports having been to the Emergency Room with hypokalemia. Reports that her chest pain has been going to her back. She also reports that she has been coughing; however, there has been only minimal amounts of sputum. She says that there is pain in the right upper quadrant of her abdomen as well. She did have a high-grade fever with chills during the last admission, this has now subsided. She does not describe any new upper respiratory complaints. She has had some minor epistaxis though. She does have a dry nose. She does not have a sore throat. There is no swelling of lower extremities or calf pain. The patient did not describe any significant nausea, vomiting, diarrhea or constipation. At this time, she is not having heartburn. She does not describe urinary complaints. She has sleep complaints including disturbed sleep as well as sleepiness during the day. These are at baseline. REVIEW OF SYSTEMS: For 14 points is negative except as mentioned above. PAST MEDICAL HISTORY: Recent diagnosis of COVID-19 with pulmonary infiltrates as above. Bronchial asthma, diabetes, [place] [address] CONSULTATION Name: SKYLAR OLSEN Room: [address] [place] ..#: [id number] Admission: 03/10/20 Attend Phys: Vinayak Guardado Discharge: Date of : 62 Report #: [id number] obstructive sleep apnea, not previously diagnosed, bilateral breast reduction, liposuction, right thumb tendon repair, gallbladder surgery, hypertension, irritable bowel syndrome, facial biopsy. SOCIAL HISTORY: Lifetime nonsmoker. No known history of heavy alcohol use or illegal drug use. CURRENT MEDICATIONS: List in [place] reviewed. HOME MEDICATIONS: List in [place] also reviewed. Also, see discussion above. ALLERGIES: THE PATIENT REPORTS HAVING HAD A RASH WITH AUGMENTIN IN THE PAST. SHE TOLERATES CEPHALOSPORINS WITHOUT ANY PROBLEMS. GLUTEN IS LISTED AN ALLERGY. SHE HAS HAD KODY INHIBITOR RELATED COUGH. FAMILY HISTORY: Another family member was also admitted with COVID-19 recently. PHYSICAL EXAMINATION: GENERAL: She does appear to be anxious. She is alert, awake and oriented. VITAL SIGNS: Has a pulse of 100 and blood pressure of 140/80. She is saturating 95%. She is not on supplemental oxygen. Her respiratory rate is 16-18. She is afebrile with a temperature of 36.9. HEENT: Head is normocephalic and atraumatic. Pupils are equal and reactive. There is no throat erythema. She does have a narrow airway. NECK: Does not show raised JVP, asymmetry, mass or lymph nodes. CHEST: Symmetrical expansion on inspection and palpation. On auscultation, the chest is clear. HEART: Heart is regular. There is no murmur. ABDOMEN: Soft. There is tenderness in the right upper quadrant. EXTREMITIES: Lower extremities show no edema, no calf tenderness. SKIN: Dry and intact. NEUROLOGICAL: Moves all extremities bilaterally equally and spontaneously with no focal deficit identified. ASSESSMENT/PLAN: 1. Pulmonary infiltrates/COVID 19/chest pain. It appears likely to me that the patient's chest pain is musculoskeletal. Also, I am not convinced the patient in fact has any new infiltrates. Considering that she reported that her chest pain was going to her back, I did consider the possibility of an aortic aneurysm; however, she has had a recent CTA chest shows that the aorta as if the normal size, which will make it unlikely. At this time, I would like to evaluate further by obtaining a CT chest. I considered as to whether this should be done with or without IV dye. Considering the patient still has an elevation in creatinine, the potential risk of giving her IV dye is greater than the benefit. In my view and therefore, I am ordering this without contrast. Should the patient's chest pain reoccur, I would consider obtaining a CTA chest [facility] [address] [place] [address] CONSULTATION Name: SKYLAR OLSEN Marco Antonio Room: [address] [place] M.R.#: [id number] Admission: 03/10/20 Attend Phys: Vinayak Guardado Discharge: Date of : 62 Report #: [id number] with an aortic dissection protocol. See discussion above. This appears unlikely and therefore, I did not proceed with the same as it will be high risk of IV dye injury at this time. We should still be able to see any change in the size of the aorta, if any, on the CT being ordered. Meanwhile, the patient remains on broad-spectrum antibiotics including vancomycin. We will reassess after the CT is performed. Note that the patient has a previous history of being MRSA positive. 2. Right upper quadrant abdominal pain. I will also go ahead and obtain a CT of the abdomen and pelvis. She is on Protonix. We will increase this to b.i.d. We will also check a lipase level and I have added this to her last labs. 3. COVID-19. She is still on dexamethasone, which is being tapered off. She received remdesivir earlier. 4. Bronchial asthma. She is not actively bronchospastic. We will give her bronchodilators on an as needed basis. 5. Hypersomnia/sleep disturbances. Appears to have obstructive sleep apnea. Recommend an outpatient sleep study. 6. Nasal dryness/epistaxis. We will give her Afrin and p.r.n. nasal saline. If the patient wants to use her own lubricating saline gel, she may use that as well. 7. Acute renal failure. The patient is on IV fluids. This is already improving. I agree with fluids as ordered. Continue to keep her well hydrated. Hyponatremia is also noted. Follow. 8. History of diabetes. Thanks for this consultation. By: 1522 1610Dayday Newman MD /nt
[~2020-03-10 04:09] MED LIST changes: +BENZONATATE100 MG PO; +CEFDINIR300 MG PO; +COMBIVENT INH; +CYCLOBENZAPRINE10 MG PO; +DEXAMETHASONE 44 M1 PO; +DIFLUCAN10 MG/ML PO; +ROBITUSSIN AC Liquid PO; +VALSARTAN80 MG PO
[2020-03-10 04:10] VITALS: BP 166/88
[2020-03-10 04:39] LABS: HEMATOCRIT 34.4 % (37.0-47.0); HEMOGLOBIN 11.9 gm/dL (12.0-15.0); MCH 30.5 pg (26.0-34.0); MCHC 34.6 g/dL (28.0-37.0); MCV 88.2 fL (80.0-100.0); MPV 6.4 fl. (7.2-11.1); NUCLEATED RBCS 0 /100WBC; PLATELET COUNT* 238 thou/uL (150-400); RDW-CV 12.9 % (10.5-14.5)
[2020-03-10 04:46] LABS: CALCIUM 8.1 mg/dL (8.5-10.1); CREATININE 1.7 mg/dL (0.6-1.3); POTASSIUM 4.6 mmol/L (3.5-5.1)
[2020-03-10 04:50] LABS: PROTIME 9.9 Seconds (9.20-11.50)
[2020-03-10 04:57] LABS: ALBUMIN 2.9 g/dL (3.4-5.0); MAGNESIUM 1.9 mg/dL (1.8-2.4); TOTAL BILIRUBIN 0.7 mg/dL (<0.1-1.0); TOTAL PROTEIN 6.1 g/dL (6.4-8.2)
[2020-03-10 05:52] LABS: ABSOLUTE LYMPHOCYTES 0.3 thou/uL (0.8-5.3); ABSOLUTE MONOCYTES 0.2 thou/uL (0.0-1.2); ABSOLUTE NEUTROPHILS 14.6 thou/uL (1.6-8.1); PLATELET ESTIMATE ADEQUATE
[2020-03-10 05:53] LABS: ANISOCYTOSIS 1+; POIKILOCYTOSIS 1+
[2020-03-10 07:18] VITALS: BP 114/74
[2020-03-10 07:38] VITALS: BP 140/80
--- NOTE | 2020-03-10 07:40 | NUR ---
RECEIVED REPORT FROM FACETORОЛЬГА KENNEDY AT 0654. PT ARRIVED TO UNIT VIA ER CART AT 0710. PT AAOX4, ORIENTED TO ROOM AND CALL LIGHT. AUTOMATED CUTTING MACHINE OPERATOR IN PLACE. NEGATIVE SEPSIS SCREENING. SHIFT CHANGE REPORT GIVEN TO VINCENT Dhaliwal RN AT 0735.
--- NOTE | 2020-03-10 12:01 | NUR ---
Pt is A&O. Recently dc to home last week. Resides at home with mom. Covid positive last week. Independent and active. No DME. No hx of HH or SNF. Pt did not qualify for home o2 last week. Pt has many concerns, Pt advocate to see Pt. Anticipate dc in a few days.
[2020-03-10 12:14] LABS: ABSOLUTE BASOPHILS 0.1 thou/uL (0.0-0.2); ABSOLUTE NEUTROPHILS 14.5 thou/uL (1.6-8.1); BASOPHILS 0.6 %; HEMATOCRIT 34.2 % (37.0-47.0); HEMOGLOBIN 12.1 gm/dL (12.0-15.0); LYMPHOCYTES 5.8 %; MCH 30.9 pg (26.0-34.0); MCHC 35.3 g/dL (28.0-37.0); MCV 87.4 fL (80.0-100.0); MONOCYTES 5.9 %; MPV 6.4 fl. (7.2-11.1); NUCLEATED RBCS 0 /100WBC; PLATELET COUNT* 236 thou/uL (150-400); POLYS 87.7 %; RBC 3.91 mil/uL (4.20-5.00); RDW-CV 13.2 % (10.5-14.5); WBC 16.5 thou/uL (4.0-11.0)
[2020-03-10 15:15] LABS: CALCIUM 8.7 mg/dL (8.5-10.1); CREATININE 1.3 mg/dL (0.6-1.3); MAGNESIUM 2.1 mg/dL (1.8-2.4); POTASSIUM 4.7 mmol/L (3.5-5.1)
[2020-03-10 15:23] VITALS: BP 122/72
[2020-03-10 16:00] VITALS: BP 137/84
--- NOTE | 2020-03-10 17:43 | EKG ---
[place] [address] ELECTROCARDIOGRAM REPORT Name: SKYLAR OLSEN Room: [address] ADM IN M.R.#: [id number] Admission: 03/10/20 Attend Phys: Zia Bettencourt Discharge: Date of : 62 Date of Service: 03/10/20 0413 Report #: [id number] THIS REPORT FOR: //name// [facility] ED Test Date: 2020-03-10 Test Time: 04:13:59 Pat Name: SKYLAR OLSEN Department: Room: [facility] Gender: F Technical Assistant: [place] : 1960 Requested By: Tigist Antony Order Number: [id number] MD: Jona Harper Measurements Intervals [place] Rate: 110 P: 48 AK: 133 QRS: -10 QRSD: 87 T: 41 QT: 316 QTc: 428 Interpretive Statements Sinus tachycardia Abnormal R-wave progression, late transition Inferior infarct, old Compared to ECG 03/06/2020 06:24:26 Poor R-wave progression no longer present Myocardial infarct finding still present Electronically Signed On 03-10-2020 17:43:35 CDT by Jona Harper [email or web address] <ELECTRONICALLY SIGNED> By: Jona Harper MD, FACC 03/10/20 1743 0413 0413 Jona Harper MD, FACC /EPI
[2020-03-10 19:45] VITALS: BP 140/82
--- NOTE | 2020-03-10 20:35 | NUR ---
NEW ADMIT THIS AM 0740. PT CALLS OUT FOR MANY NEEDS. PT REQUESTED TO SPEAK WITH MANAGERS FOR COMPLAINTS. TELE PROGRAM COORDINATOR EXECUTIVE EDUCATION SPOKE WITH HER. PT CALLED PHARMACY DIRECTLY TO DISCUSS MEDICATIONS. PT CALLED EVS DIRECTLY TO DISCUSS ISSUES IN ROOM. HOURLY ROUNDING, TELE MONITORING.
--- NOTE | 2020-03-11 03:43 | NUR ---
PT AO X4 VSS THIS SHIFT. PT HAS MADE NUMEROUS DEMANDS FOR BENADRYL,TYLENOL FOR A STOMACH ACHE FROM THE KITCHEN FEEDING HER GLUETEN, SHE THEN HAD ME REVIEW HER MEDS AND WAS EXPLAINING WHY SHE HAD MEDS AT THE BEDSIDE. SHE KEPT TELLING ALL STAFF HOW UNHAPPY SHE WAS WITH HER ADMISSION FROM LAST WEEK AND STATING THAT SHE WAS GOING TO MAKE IT KNOWN TO EVERYONE. STATING SHE WAS FRIENDS WITH A PHYSICIAN THAT WORKS HERE AND THINGS ARE GOING TO CHANGE. 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 WHEN WOKE FOR HER MIDNIGHT MEDS PT STARTED COMPLAINING OF CHEST PAIN, ANXIETY, SOA, REQUESTING RT TO BEDSIDE, THEN SHE STATED THAT LAST WEEK THEY GAVE HER FLEXERIL AND THAT HELPED, SHE THEN DISLODGED HER IV FOR THE SECOND TIME TODAY. FOR APPROX TWO HOURS SHE WOULD CALL OUT TO THE DESK REQUESTING BACK RUBS, NEW GOWNS, NAIL SETSWANA REMOVER,SNACKS AND OTHER FRIVOLUS ITEMS, STAFF WAS VERY ACCOMODATING WITH THE PT BUT TIME DID NOT ALLOW FOR THIS TO CONTINUE IT WAS EXPLAINED TO HER THAT WE WERE APPROACHING A VERY BUSY TIME OF THE AM AND SHE SHOULD MAKE REQUESTS NOW BECAUSE STAFF WOULD NOT BE AVAILABLE TO BE IN HER ROOM FREQUENTLY THEY HAD BEEN. PT ADMITS SHE HAS GRANDIOSE IDEAS AND WISHES.
[2020-03-11 05:04] LABS: ABSOLUTE LYMPHOCYTES 0.9 thou/uL (0.8-5.3); ABSOLUTE MONOCYTES 0.9 thou/uL (0.0-1.2); BASOPHILS 0.2 %; EOSINOPHILS 0.1 %; HEMATOCRIT 34.4 % (37.0-47.0); HEMOGLOBIN 12.1 gm/dL (12.0-15.0); LYMPHOCYTES 7.3 %; MCH 30.5 pg (26.0-34.0); MCHC 35.1 g/dL (28.0-37.0); MCV 86.9 fL (80.0-100.0); MPV 6.5 fl. (7.2-11.1); NUCLEATED RBCS 0 /100WBC; PLATELET COUNT* 214 thou/uL (150-400); POLYS 85.4 %; RBC 3.95 mil/uL (4.20-5.00); RDW-CV 12.9 % (10.5-14.5); WBC 12.9 thou/uL (4.0-11.0)
[2020-03-11 05:12] LABS: ALBUMIN 2.8 g/dL (3.4-5.0); CALCIUM 8.1 mg/dL (8.5-10.1); CREATININE 1.2 mg/dL (0.6-1.3); MAGNESIUM 1.9 mg/dL (1.8-2.4); TOTAL BILIRUBIN 0.8 mg/dL (<0.1-1.0); TOTAL PROTEIN 5.9 g/dL (6.4-8.2)
[2020-03-11 05:16] LABS: POTASSIUM 3.6 mmol/L (3.5-5.1)
--- NOTE | 2020-03-11 05:31 | NUR ---
PT CALLED ME TO BEDSIDE TO LET ME KNOW THAT SHE HAS BEEN HAVING NAUSEA AND ABD PAIN THIS PM. SHE STATES SHE REQUESTED TO HAVE PRN MIRALAX, SENNAKOT, AND NAUSEA MEDS. SHE STATES SHE DOES TAPWATER ENEMAS AT HOME AT LEAST ONCE A MONTH FOR CONSTIPATION AND BELIEVES SHE HAS A BOWEL OBSTRUCTION NOW, REQUESTING THESE MEDS WELL APPLE AND PRUNE JUICE FOR RELIEF OF ABD PAIN RIGHT NOW. CHRISTALTM
[2020-03-11 05:32] LABS: PHOSPHORUS* 5.1 mg/dL (2.5-4.9)
[2020-03-11 08:00] VITALS: BP 156/92
--- NOTE | 2020-03-11 09:00 | NUR ---
UPON ENTERING ROOM TO PERFORM ASSESSMENT PT MOTIONS FOR STAFF TO WAIT SHE IS ON THE PHONE. WHEN STAFF REENTERED TO PERFORM ASSESSMENTS PT OFTEN TALKS OVER STAFF AND GIVES A LIST OF MULTIPLE REQUESTS. PT OFF TOPIC WITH HER COMPLAINTS AND DIFFICULT TO REDIRECT
--- NOTE | 2020-03-11 10:00 | NUR ---
PT HEARD ON PHONE TALKING TO HER FAMILY STATING THAT SHE HAS AN "AORTIC DISSECTION AND NEEDS OPEN HEART SURGERY" OR "POSSIBLY MY PANCREAS REMOVED". ASSURED PT THAT THIS WAS NOT THE CASE PER PHYSICIAN'S NOTES.
--- NOTE | 2020-03-11 10:54 | NUR ---
GI following. Pt did dc to home last week with o2, but is currently not requiring home o2. Goal is home. Following for dc needs.
[2020-03-11 12:00] VITALS: BP 156/83
--- NOTE | 2020-03-11 15:12 | NUR ---
NO ENEMA GIVEN PT HAD LARGE BM
[2020-03-11 16:00] VITALS: BP 153/82
--- NOTE | 2020-03-11 17:39 | NUR ---
PT UP AD INESSA IN ROOM. PT ANXIOUS AND CALLS FREQUENTLY WITH ASSIST. PT OFTEN OFF TOPIC AND BECOMES IRRITATED WHEN STAFF ATTEMPTS TO KEEP HER ON TOPIC. PT REPORTS PAIN TO RIGHT ABD AND RIBS WHICH IS IMPROVED WITH MOVEMENT. PT ON RA. IVF INFUSING. TOLERATING PO WELL. PT ORDERING HER MEALS SHE STATES SHE HAS MULTIPLE FOOD ALLERGIES. PT VOIDING WELL. LARGE BM TODAY
--- NOTE | 2020-03-11 19:12 | NUR ---
PT CALLED STAFF IN TO ROOM. PT CRYING,HR ELEVATED. PT ASKING ABOUT WHY GI HAS NOT SEEN HER TODAY. CONSULT CALLED.GI AWARE OF PT. INFORMED PT THAT GI WILL SEE IN AM
[2020-03-11 20:00] VITALS: BP 156/89
[2020-03-11 23:00] VITALS: BP 150/87
--- NOTE | 2020-03-12 00:37 | NUR ---
Patient Iveth Azevedo had me come to her room for me to administer her home Combivent and Symbycort MDI. I explained to the patient she has no scheduled treatment, only a PRN Albuterol treatment. I asked "do you need a Albuterol treatment"? She said "no, i want to know why respiratory isnt coming in at thier scheduled time to give me my inhalers". I explained to her that it is her responsibility to administer her home medications inhalers and Respiratory will only administer her PRN Albuteral MDI as needed. If the patient wants scheduled treatments, an order needs to be placed and home medications need to be sent home due to possibility of over medicating. Patient was very upset after talking to me and went out to nurses desk and asked for complaint forms without wearing a mask. I informed the director hr communications nurse Christina of the incident. I did mention to the patient if Respiratory can not make it to her room in a timly matter for a PRN Albuterol treatment, her home Combivent MDI can be used as rescue inhaler.
[2020-03-12 02:35] VITALS: BP 144/89
[2020-03-12 04:37] LABS: HEMATOCRIT 32.2 % (37.0-47.0); HEMOGLOBIN 11.5 gm/dL (12.0-15.0); MCH 31.2 pg (26.0-34.0); MCHC 35.8 g/dL (28.0-37.0); MCV 87.3 fL (80.0-100.0); MPV 6.7 fl. (7.2-11.1); NUCLEATED RBCS 0 /100WBC; PLATELET COUNT* 185 thou/uL (150-400); RBC 3.68 mil/uL (4.20-5.00); RDW-CV 12.9 % (10.5-14.5); WBC 9.3 thou/uL (4.0-11.0)
[2020-03-12 05:31] LABS: ABSOLUTE MONOCYTES 0.3 thou/uL (0.0-1.2); PLATELET ESTIMATE ADEQUATE
[2020-03-12 06:03] LABS: ALBUMIN 2.8 g/dL (3.4-5.0); ALKALINE PHOSPHATASE 46 U/L (46-116); ANION GAP 11 mmol/L (7-16); BUN 17 mg/dL (7-18); CHLORIDE 101 mmol/L (98-107); CHOLESTEROL 121 mg/dL (<200); CO2 24 mmol/L (21-32); CREATININE 1.1 mg/dL (0.6-1.3); GLUCOSE 116 mg/dL (70-99); HDL CHOLESTEROL 36 mg/dL (>40); LDL CHOLESTEROL 70 mg/dL (<100); MAGNESIUM 1.8 mg/dL (1.8-2.4); POTASSIUM 3.8 mmol/L (3.5-5.1); SGOT 23 U/L (15-37); SGPT 69 U/L (30-65); SODIUM 136 mmol/L (136-145); TC:HDL 3.4 Ratio (Not establshd); TOTAL BILIRUBIN 0.7 mg/dL (<0.1-1.0); TOTAL PROTEIN 5.5 g/dL (6.4-8.2); TRIGLYCERIDE 76 mg/dL (<150); VLDL 15 mg/dL (<40)
[2020-03-12 06:04] LABS: SERUM ASSESSMENT Clear
--- NOTE | 2020-03-12 06:46 | NUR ---
ASSUMED PT CARE AT 1910. NURSING ASSESSMENT COMPLETED AT START OF SHIFT. PT VERY NEEDY AND ATTENTION SEEKING BEHAVIORS OBSERVED THIS SHIFT. SR/ST ON LABORER TIN CAN. NPO FOR ERCP. PT COMPLAINING OF BACK MUSCLE SPASMS AND ABDOMNIAL PAIN AND REQUESTING IV PAIN MEDS. DR. RANDLE NOTIFIED.
[2020-03-12 08:00] VITALS: BP 155/97
--- NOTE | 2020-03-12 11:22 | NUR ---
Pt continues to have paranoid like thoughts, plan tele psych consult.
--- NOTE | 2020-03-12 13:25 | EKG ---
[place] [address] ELECTROCARDIOGRAM REPORT Name: SKYLAR OLSEN Room: [address] ADM IN M.R.#: [id number] Admission: 03/10/20 Attend Phys: Zia Bettencourt Discharge: Date of : 62 Date of Service: 03/12/200 Report #: [id number] THIS REPORT FOR: //name// [facility] Test Date: 2020-03-12 Test Time: 02:20:50 Pat Name: SKYLAR OLSEN Department: Room: [address] Gender: F Consulting Property Manager: REJI : 1960 Requested By: Zia Bettencourt Order Number: [id number] Reading MD: Richard Byrd Measurements Intervals [place] Rate: 96 P: 28 IA: 135 QRS: -19 QRSD: 90 T: 38 QT: 338 QTc: 428 Interpretive Statements Sinus rhythm Inferior infarct, old Poor R wave progression over the right precordium Compared to ECG 03/10/2020 04:13:59 Sinus tachycardia no longer present Myocardial infarct finding still present Electronically Signed On 03-12-2020 13:25:22 CDT by Richard Byrd [email or web address] <ELECTRONICALLY SIGNED> By: Richard Byrd MD, FAC 03/12/20 1325 9 9 Richard Byrd MD, [facility] /EPI
[2020-03-12 16:00] VITALS: BP 145/97
--- NOTE | 2020-03-12 16:51 | NUR ---
PT UP IN ROOM WITH STEADY GAIT. PT HAS TANGENITAL THOUGHTS AND SPEECH. PSYCH CONSULT TODAY. PT WRITING LISTS IN NOTEBOOK WHICH SHE GIVES TO STAFF. PT OCASSIONALLY REPORTS ABD PAIN OR CHEST PAIN WHICH SHE STATES IS RELIEVED BY "POTASSIUM". PT CONCERNED EARLY IN THE SHIFT THAT "I HAVE FREE AIR IN MY ABD" ASSURED PT THAT GI ASSESSMENT IS WNL. PT ON PHONE FREQUENTLY WITH FAMILY.
[2020-03-12 20:10] VITALS: BP 154/85
[2020-03-13 00:30] VITALS: BP 148/98
[2020-03-13 04:32] VITALS: BP 141/82
--- NOTE | 2020-03-13 04:42 | NUR ---
PT AWAKE MOST OF SHIFT. ASSESSMENT DOCUMENTED. MEDS GIVEN PER E-MAR. IV PATENT AT BEGINING OF SHIFT, DURING THE NIGHT, PT REPORTED THAT THE IV IS IRRITATED AND ADMITTED TO ANCHORING THINGS UNDER HER IVS. PT ALSO CALLING OUT FREQUENLY REFUSING TO SAY WHAT SHE NEEDS UNTIL YOU ARE IN THE ROOM AND THEN STARTS TALKING ABOUT HER STAY LAST WEEK AND HAS A HARD TIME STAYING ON TRACK. ANXIETY MEDS AND TYLENOL GIVEN PER E-MAR. PT UP AT [place] IN ROOM. PT HAD BM THIS SHIFT.
--- NOTE | 2020-03-13 07:09 | NUR ---
PT WROTE A LIST OF THINGS SHE DEMANDS BEFORE SHE LEAVES TODAY, I WAS UNABLE TO READ THE LIST SO I HAD HER READ IT AND WROTE DOWN WHAT SHE SAID. BOTH LISTS ARE IN THE FRONT OF THE CHART.
[2020-03-13] MEDS ORDERED: KLOR-CON 10 ER10 MEQ PO (10:08)
[2020-03-13] MEDS ORDERED: LORAZEPAM 0.50.5 MG PO (10:08)
[2020-03-13] MEDS ORDERED: RISPERIDONE 00.25 MG PO (10:08)
[2020-03-13 14:04] VITALS: BP 104/70
--- NOTE | 2020-03-13 14:09 | NUR ---
Pt medically stable to dc, Pt wants to voluntarily admit to inpt psych. CM spoke with Pt's mom, she's in agreement. Await call backs with ability to accept. CM started emtala and ambulance forms, on the front of Pt's chart. [facility]-at capacity [facility]at [facility]at [facility]-faxed referral [facility]-faxed referral [facility]at [facility]
[2020-03-13 15:53] LABS: URINE BILIRUBIN NEGATIVE (Negative); URINE BLOOD TRACE (Negative); URINE CLARITY CLEAR; URINE COLOR YELLOW; URINE GLUCOSE-RANDOM NEGATIVE (Negative); URINE KETONES NEGATIVE (Negative); URINE LEUKOCYTES-REFLEX NEGATIVE (Negative); URINE NITRITE-REFLEX NEGATIVE (Negative); URINE PROTEIN NEGATIVE (Negative); URINE UROBILINOGEN 0.2 E.U./dl (0.2-1.0)
--- NOTE | 2020-03-13 18:48 | NUR ---
I ASSUMED CARE OF THE PATIENT AT 0700. SHE IS ALERT AND ORIENTED X2-4, BUT IS NO APPROPRIATE. BED IS IN THE LOW LOCKED POSITION AND CALL LIGHT IS IN REACH. HOURLY ROUNDING IS COMPLETED AND PATIENT NEEDS ARE MET. PAIN IS ON PARTIALLY MET. PATIENT COMPLAINS ABOUT EVERYTHING. DISCHARGE IS HOLDING ON PLACEMENT AND SHE HAS BEEN DECLINED BY [facility] AND [facility]. SHE WOULD LIKE TO VOLUNTARILY GO TO A PSYCH FACILITY. SHE CALLED AND CLAIMS SHE HAS PLACEMENT TO [facility] (BECAUSE SHE KNOWS PEOPLE THERE), LONG DR HATFIELD WILL SAY IT IS COURT ORDERED. I EXPLAINED THAT IS NOT THE SAME VOLUNTARY. [facility] CALLED TO SAY THAT HER URINE CULTURES FROM THE ED WERE POSITIVE AND RESULTS WERE FAXED. PHYSICIAN WAS NOTIFIED AND NEW ORDERS WERE OBTAINED. PATIENT IS UNHAPPY THAT SHE CAN NOT HAVE IM TORDOL AND POTASSIUM ANYTIME SHE WANTS IT. BLOOD SUGAR IS MONITORED AND CONTROLLED WITH INSULIN.
[2020-03-13 19:10] VITALS: BP 125/71
[2020-03-13 20:30] VITALS: BP 93/56
[2020-03-14] VITALS: BP 90/59
[2020-03-14 04:43] VITALS: BP 116/40
--- NOTE | 2020-03-14 04:46 | NUR ---
PT AWAKE MOST OF SHIFT. ASSESSMENT DOCUMENTED. MEDS GIVEN PER E-MAR. IV PATENT. PT NOT ANXIOIUS THIS SHIFT, BUT STILL HAVING TANGENTIAL SPEACH. PT ALSO OBSERVED TIGHTLY WRAPPING COBAN UP HER ENTIRE ARM, WHEN ASKED WHAT SHE WAS DOING, SHE STATED THAT SHE WAS USING IT WITH ALCOHOL WIPES ON HER BRUISES A LYMPHEDEMA WRAP TO HELP THEM HEAL. PT EDUCATED AND COBAN REMOVED, PT STATED SHE IS ONLY REMOVING THEM BECAUSE THEY MAKE THE NURSES UNCOMFORTABLE. PT EDUCATED WHY SHE CANNOT HAVE IV TORDOL. TYLENOL GIVEN FOR COCCYX PAIN. AM POTASSIUM GIVEN EARLY THIS AM DUE TO PT REQUEST FOR "CHEST DISCOMFORT", PT STATES THAT THE POTASSIUM HELPS HER CHEST PAIN.
[2020-03-14 08:00] VITALS: BP 108/67
[2020-03-14] MEDS ORDERED: RISPERIDONE 00.25 MG PO (09:50)
[2020-03-14] MEDS ORDERED: LORAZEPAM 0.50.5 MG PO (09:50)
[2020-03-14] MEDS ORDERED: CYCLOBENZAPRINE10 MG PO ×2 (09:50→09:52)
[2020-03-14] MEDS ORDERED: KLOR-CON 10 ER10 MEQ PO (09:51)
[2020-03-14 10:18] VITALS: BP 116/40
[2020-03-14 12:01] VITALS: BP 116/40
--- NOTE | 2020-03-14 12:51 | NUR ---
Pt discharging to home today, HH orders and referral sent to [facility] per Pt's request, HH to start care on 03/18, Pt in agreement with POC. Sister to picking tech and transport.
== END 2020-03-14 14:12 | disposition home health service (06) | DRG 682 ==
LOC: M.ERS 04:09 → M.2W 06:11 → M.TBA-ER 06:11 → M.2W 07:13
PROVIDERS: Emergency Medicine; Internal Medicine; Internal Medicine Critical Care Medicine; ADMIT Internal Medicine; ATTEND Internal Medicine
DX: N17.9 Acute kidney failure, unspecified (principal); J18.9 Pneumonia, unspecified organism; E87.1 Hypo-osmolality and hyponatremia; N39.0 Urinary tract infection, site not specified; I10 Essential (primary) hypertension; J45.909 Unspecified asthma, uncomplicated; E11.65 Type 2 diabetes mellitus with hyperglycemia; G47.33 Obstructive sleep apnea (adult) (pediatric); B37.9 Candidiasis, unspecified; T78.40XA Allergy, unspecified, initial encounter; X58.XXXA Exposure to other specified factors, initial encounter; T38.0X5A Adverse effect of glucocorticoids and synthetic analogues, initial encounter; E87.6 Hypokalemia; K59.00 Constipation, unspecified; F41.0 Panic disorder [episodic paroxysmal anxiety]; F29 Unspecified psychosis not due to a substance or known physiological condition; Z79.52 Long term (current) use of systemic steroids; Z88.1 Allergy status to other antibiotic agents; Z88.8 Allergy status to other drugs, medicaments and biological substances; Y92.89 Other specified places as the place of occurrence of the external cause

== ENCOUNTER 2020-03-19 15:48 | Emergency (ER) | payer BC ==
[~2020-03-19] VITALS: Ht 162.6 cm; Wt 87.1 kg
[~2020-03-19 15:48] MED LIST changes: +KLOR-CON 10 ER10 MEQ PO; +LORAZEPAM 0.50.5 MG PO; +RISPERIDONE 00.25 MG PO
[2020-03-19 16:16] LABS: URINE BILIRUBIN NEGATIVE (Negative); URINE BLOOD NEGATIVE (Negative); URINE CLARITY CLEAR; URINE COLOR YELLOW; URINE GLUCOSE-RANDOM NEGATIVE (Negative); URINE KETONES NEGATIVE (Negative); URINE LEUKOCYTES-REFLEX NEGATIVE (Negative); URINE NITRITE-REFLEX NEGATIVE (Negative); URINE PROTEIN NEGATIVE (Negative); URINE SPECIFIC GRAVITY 1.025 (1.005-1.030); URINE UROBILINOGEN 0.2 E.U./dl (0.2-1.0)
[2020-03-19 16:51] LABS: ABSOLUTE BASOPHILS 0.1 thou/uL (0.0-0.2); ABSOLUTE EOSINOPHILS 0.1 thou/uL (0.0-0.7); ABSOLUTE LYMPHOCYTES 1.4 thou/uL (0.8-5.3); ABSOLUTE MONOCYTES 0.4 thou/uL (0.0-1.2); ABSOLUTE NEUTROPHILS 2.5 thou/uL (1.6-8.1); BASOPHILS 1.2 %; EOSINOPHILS 1.9 %; HEMATOCRIT 27.1 % (37.0-47.0); HEMOGLOBIN 9.6 gm/dL (12.0-15.0); LYMPHOCYTES 32.1 %; MCH 31.4 pg (26.0-34.0); MCHC 35.4 g/dL (28.0-37.0); MCV 88.9 fL (80.0-100.0); MONOCYTES 8.8 %; MPV 6.3 fl. (7.2-11.1); NUCLEATED RBCS 0 /100WBC; PLATELET COUNT* 164 thou/uL (150-400); RBC 3.05 mil/uL (4.20-5.00); RDW-CV 13.8 % (10.5-14.5); WBC 4.4 thou/uL (4.0-11.0)
[2020-03-19 16:56] LABS: CREATININE 1.3 mg/dL (0.6-1.3); POTASSIUM 3.5 mmol/L (3.5-5.1)
[2020-03-19 17:07] LABS: ALBUMIN 2.7 g/dL (3.4-5.0); TOTAL BILIRUBIN 0.6 mg/dL (<0.1-1.0); TOTAL PROTEIN 5.7 g/dL (6.4-8.2)
[2020-03-19] MEDS ORDERED: BENTYL 20 MG TA20 M1 PO (19:07)
[2020-03-19 19:22] VITALS: BP 129/73
--- NOTE | 2020-03-20 10:44 | EKG ---
[place] [address] ELECTROCARDIOGRAM REPORT Name: SKYLAR OLSEN Room: [facility]#: [id number] Admission: 03/19/20 Attend Phys: Discharge: 03/19/20 Date of : 62 Date of Service: 03/19/20 1629 Report #: [id number] THIS REPORT FOR: //name// [facility] ED Test Date: 2020-03-19 Test Time: 16:29:12 Pat Name: SKYLAR OLSEN Department: Room: Gender: Nick Setter: : 1960 Requested By: Isa Dugan Order Number: [id number] MD: Kg Licona Measurements Intervals [place] Rate: 108 P: 17 GA: 137 QRS: -12 QRSD: 90 T: 27 QT: 335 QTc: 449 Interpretive Statements Sinus tachycardia poor r wave progression Probable inferior infarct, old Compared to ECG 03/12/2020 02:20:50 Sinus rhythm no longer present Myocardial infarct finding still present Electronically Signed On 03-20-2020 10:44:14 CDT by Kg Licona [email or web address] <ELECTRONICALLY SIGNED> By: Kg Licona MD, FAC 03/20/20 1044 1629 1629 Kg Licona MD, [facility] /EPI
== END 2020-03-19 19:23 | disposition home or self-care (01) ==
LOC: M.ERS 15:48
PROVIDERS: Nurse Practitioner Family
DX: D64.9 Anemia, unspecified (principal); R10.11 Right upper quadrant pain; I10 Essential (primary) hypertension; E11.9 Type 2 diabetes mellitus without complications; J45.909 Unspecified asthma, uncomplicated; K58.9 Irritable bowel syndrome, unspecified; Z20.828 Contact with and (suspected) exposure to other viral communicable diseases; Z87.440 Personal history of urinary (tract) infections; Z88.1 Allergy status to other antibiotic agents; Z88.8 Allergy status to other drugs, medicaments and biological substances